=== PATIENT | female | born 2000 | race Caucasian/White ===

== ENCOUNTER → 2023-06-09 | Emergency (ER) | payer SELFPAY ==
[~2023-06-09] VITALS: Ht 165.1 cm; Wt 56.0 kg
[~2023-06-09] MED LIST: IBUP-2029 MT; IBUPROFEN 600MG TABLET PO ONE
[2023-06-09 08:02] VITALS: TEMP 98.4; O2SAT 99
[2023-06-09 08:30] VITALS: BP 123/81; PULSE 103; RESP 20
== END ==
LOC: ER 07:55
DX: S93.602A Unspecified sprain of left foot, initial encounter (principal); X58.XXXA Exposure to other specified factors, initial encounter; Y93.89 Activity, other specified; Y92.89 Other specified places as the place of occurrence of the external cause; Y99.8 Other external cause status
CPT/HCPCS: 73630; 99283